=== PATIENT | female | born 1995 | race African-American/Black ===

== ENCOUNTER 2019-08-11 02:24 | Inpatient (IN) ==
[2019-08-11 03:32] LABS: Apearance,Urine CLOUDY (Clear); Bacteria,Urine Few /HPF (Few); Bilirubin,Urine Negative (Negative); Blood, Urine Large mg/dL (Negative); Glucose,Urine (UA) Negative (Negative); Ketones,Urine Negative (Negative); Mucus,Urine Occasional /LPF (Occasional); Nitrite,Urine Negative (Negative); Protein,Urine Negative; RBC,Urine 14 /HPF (0-4); Squamous Epithelial Cell,Urine Few /HPF (0-10); Urine Color Yellow (Yellow); Urine Specific Gravity 1.008 (1.001-1.035); WBC,Urine 84 /HPF (0-6)
[2019-08-11] MEDS ORDERED: ONDANSETRON 4 MG/2 ML VIAL IV PRN (05:00)
[2019-08-11] MEDS ORDERED: LACTATED RINGERS 1,000 ML IV SCH ×2 (05:00→08:00)
[2019-08-11] MEDS ORDERED: BUTORPHANOL 2 MG/ML VIAL IV PRN (05:00)
[2019-08-11] MEDS ORDERED: LACTATED RINGERS 1,000 ML IV ONE (07:44)
[2019-08-11] MEDS ORDERED: ePHEDrine 50 MG/ML AMP IV PRN (07:44)
[2019-08-11] MEDS ORDERED: hydrOXYzine HCL 25 MG/1 ML VIAL IM PRN (07:44)
[2019-08-11] MEDS ORDERED: NALOXONE 0.4 MG/ML VIAL IV PRN (07:44)
[2019-08-11] MEDS ORDERED: CITRIC ACID/SODIUM CITRATE 30 ML UDCUP PO ONE (07:44)
[2019-08-11] MEDS ORDERED: diphenhydrAMINE 50 MG/1 ML VIAL IV PRN ×2 (07:44)
[2019-08-11] MEDS ORDERED: PROMETHAZINE 25 MG/1 ML VIAL IM ONE (07:44)
[2019-08-11] MEDS ORDERED: FAMOTIDINE 20 MG/2 ML VIAL IV ONE (07:44)
[2019-08-11] MEDS ORDERED: OXYTOCIN/LR 20 UNIT/1,000 ML BAG IV SCH (08:00)
[2019-08-11] MEDS ORDERED: fentaNYL 2 MCG/ROPIV 0.2% EPID 100 ML EPIDURAL SCH (08:00)
[2019-08-11 08:12] LABS: Basophils % 0.2 % (0.0-0.8); Eosinophils % 0.1 % (0.00-10.9); Hematocrit 28.7 VOL% (35.7-47.0); Hemoglobin 8.5 GM/DL (12.0-16.0); Immature Granulocytes Absolute 0.15 #; Lymphocytes # 1.2 10*3/uL (1.4-4.0); Mean Corpuscular HGB Conc 29.6 GM/DL (32-36); Mean Corpuscular Volume 82.7 FL (87-102); Mean Platelet Volume 10.2 FL (9.6-12.0); Monocytes % 5.8 % (1.7-12.7); Neutrophils % 84.9 % (38.7-73.9); Platelet Count 255 T/CUMM (130-400); Red Blood Count 3.47 MC/CUMM (3.8-5.5); Red Cell Distribution Width 14.7 % (9.3-17.3); White Blood Count 15.3 T/CUMM (4-12)
[2019-08-11 08:39] LABS: Anisocytosis 1+; Hypochromasia 2+; Microcytosis 2+; Ovalocytes Few; Polychromasia Few
[2019-08-11 08:40] LABS: Platelet Estimate Normal
[2019-08-11 10:08] LABS: Apearance,Urine CLEAR (Clear); Bilirubin,Urine Negative (Negative); Blood, Urine Negative (Negative); Glucose,Urine (UA) Negative (Negative); Ketones,Urine 20 mg/dL (Negative); Nitrite,Urine Negative (Negative); Protein,Urine Negative; RBC,Urine 1 /HPF (0-4); Squamous Epithelial Cell,Urine Occasional /HPF (0-10); Urine Color Yellow (Yellow); Urine Specific Gravity 1.006 (1.001-1.035); WBC,Urine 2 /HPF (0-6)
[2019-08-11] MEDS ORDERED: miSOPROStoL 200 MCG TABLET ONE (12:11)
[2019-08-11] MEDS ORDERED: TRANEXAMIC ACID 1,000 MG/10 ML VIAL ONE (12:11)
[2019-08-11] MEDS ORDERED: CARBOPROST TROMETHAMINE 250 MCG/ML AMP IM ONE (12:12)
[2019-08-11] MEDS ORDERED: METHYLERGONOVINE 0.2 MG/1 ML AMP ONE (12:12)
[2019-08-11] MEDS ORDERED: LIDOCAINE 1% 50 ML VIAL ONE (12:28)
[2019-08-11] MEDS ORDERED: IBUPROFEN 800 MG TABLET PO ONE (15:45)
[2019-08-11] MEDS: ACETAMINOPHEN/CODEINE 300-30 MG TABLET PO PRN (19:04)
[2019-08-12 06:07] LABS: Basophils # 0.1 10*3/uL (0.0-0.2); Basophils % 0.3 % (0.0-0.8); Eosinophils # 0.1 10*3/uL (0.0-0.87); Eosinophils % 0.4 % (0.00-10.9); Hematocrit 27.9 VOL% (35.7-47.0); Hemoglobin 8.1 GM/DL (12.0-16.0); Immature Granulocytes % 1.2 %; Immature Granulocytes Absolute 0.23 #; Lymphocytes # 2.1 10*3/uL (1.4-4.0); Lymphocytes % 10.7 % (21.3-54.2); Mean Corpuscular Volume 83.3 FL (87-102); Mean Platelet Volume 10.5 FL (9.6-12.0); Monocytes % 7.4 % (1.7-12.7); Platelet Count 261 T/CUMM (130-400); Red Blood Count 3.35 MC/CUMM (3.8-5.5); Red Cell Distribution Width 14.8 % (9.3-17.3); White Blood Count 19.5 T/CUMM (4-12)
[2019-08-12] MEDS: FERROUS SULFATE 325 MG TABLET PO SCH ×2 (09:11→20:55)
[2019-08-12] MEDS: DOCUSATE SODIUM 100 MG CAPSULE PO SCH ×2 (09:11→20:56)
[2019-08-12] MEDS: ACETAMINOPHEN/CODEINE 300-30 MG TABLET PO PRN (23:31)
[2019-08-13] MEDS: ACETAMINOPHEN/CODEINE 300-30 MG TABLET PO PRN (06:38)
[2019-08-13 07:27] VITALS: BP 108/69
[2019-08-13] MEDS: DOCUSATE SODIUM 100 MG CAPSULE PO SCH (09:26)
[2019-08-13] MEDS: FERROUS SULFATE 325 MG TABLET PO SCH (09:26)
== END 2019-08-13 12:20 | disposition home or self-care (01) | DRG 560 ==
LOC: N.LDOUT 02:24 → N.LD 02:29 → N.OB 16:00
PROVIDERS: ADMIT Obstetrics & Gynecology; ATTEND Obstetrics & Gynecology